=== PATIENT | male | born 1995 | race Caucasian/White ===

== ENCOUNTER → 2017-02-19 05:34 | Emergency (ER) | payer OTHER ==
[~2017-02-19 05:34] MED LIST: ALPRAZolam TAB* 0.5 MG PO ONE; Acetaminophen TAB* 325 MG PO ONE; DULoxetine DR CAP* 30 MG CAP.DR PO ONE; DULoxetine DR CAP* 60 MG CAP.DR PO ONE; Ibuprofen TAB* 600 MG PO ONE; Ibuprofen TAB* 800 MG PO ONE; LORazepam TAB(*) 1 MG PO ONE
[2017-02-19 08:17] LABS: Urine Bilirubin Negative (Negative); Urine Glucose Negative (Negative); Urine Nitrite Negative (Negative)
[2017-02-19 08:27] LABS: Benzodiazepine Urine Screen None Detected (None Detect)
[2017-02-19 09:00] LABS: Hematocrit 45 % (42-52); Hemoglobin 15.7 g/dl (14.0-18.0); Mean Corpuscular HGB Conc 35 g/dl (31-36); Mean Corpuscular Hemoglobin 32 pg (27-31); Mean Corpuscular Volume 90 fL (80-94); Mean Platelet Volume 9 um3 (7.4-10.4); Red Blood Count 4.95 10^6/ul (4.0-5.4); Red Cell Distribution Width 12 % (10.5-15); White Blood Count 6.2 10^3/ul (3.5-10.8)
[2017-02-19 09:35] LABS: ALT 26 U/L (7-52); AST 59 U/L (13-39); Albumin 4.4 g/dL (3.2-5.2); Alkaline Phosphatase 52 U/L (34-104); Anion Gap 6 mmol/L (2-11); BUN/Creatinine Ratio 10.4 (8-20); Blood Urea Nitrogen 11 mg/dL (6-24); CO2 Carbon Dioxide 29 mmol/L (22-32); Calcium 9.4 mg/dL (8.6-10.3); Chloride 102 mmol/L (101-111); EGFR African American 113.4 (>60); EGFR Non-African American 88.2 (>60); Globulin 2.2 g/dL (2-4); Glucose 94 mg/dL (70-100); Potassium 4.2 mmol/L (3.5-5.0); Sodium 137 mmol/L (133-145); Total Protein 6.6 g/dL (6.4-8.9)
[2017-02-19 10:10] LABS: Acetaminophen < 15 mcg/mL; Alcohol < 10 mg/dL (<10); Salicylate < 2.50 mg/dL (<30)
[2017-02-19 10:15] LABS: TSH (Thyroid Stimulating Horm) 2.62 mcIU/mL (0.34-5.60)
[2017-02-19 13:11] VITALS: BP 126/72
--- NOTE | 2017-02-20 08:44 | PN ---
ED Flex Patient Progress Note Subjective: This is a 21 year-old M who is pending discharge to home secondary to anxiety. Pt offers no complaints at this time. He has been having cold like symptoms for the past couple days. He slept well last night. Objective: Vitals: Most recent vital signs documented below. General NAD, Alert and oriented x3. Heart: rrr at 70 bpm Lungs: CTA or with rales, rhonchi, wheezing Laboratory: Current laboratory results documented below. Assessment: Persistent mood disorder Plan: Pending psychiatric to discharge will follow up daily Condition: stable Disposition: home Vital Signs Temp Pulse Resp BP Pulse Ox 100.7 F 78 13 126/72 100 02/19/17 13:10 02/19/17 13:10 02/20/17 05:33 02/19/17 13:10 02/19/17 13:10 Lab Results - Entire Visit 02/19/17 02/19/17 02/19/17 08:37 08:37 06:05 WBC 6.2 RBC 4.95 Hgb 15.7 Hct 45 MCV 90 MCH 32 H MCHC 35 RDW 12 Plt Count 139 L MPV 9 Neut % (Auto) 57.1 Lymph % (Auto) 23.4 L [place] % (Auto) 18.9 H Eos % (Auto) 0.2 Baso % (Auto) 0.4 Absolute Neuts (auto) 3.5 Absolute Lymphs (auto) 1.4 Absolute Monos (auto) 1.2 H Absolute Eos (auto) 0 Absolute Basos (auto) 0 Absolute Nucleated RBC 0 Nucleated RBC % 0.1 Sodium 137 Potassium 4.2 Chloride 102 Carbon Dioxide 29 Anion Gap 6 BUN 11 Creatinine 1.06 Est GFR ( Amer) 113.4 Est GFR (Non-Af Amer) 88.2 BUN/Creatinine Ratio 10.4 Glucose 94 Calcium 9.4 Total Bilirubin 0.70 AST 59 H ALT 26 Alkaline Phosphatase 52 Total Protein 6.6 Albumin 4.4 Globulin 2.2 Albumin/Globulin Ratio 2.0 TSH 2.62 Urine Color Yellow Urine Appearance Clear Urine pH 7.0 Ur Specific [place] 1.008 L Urine Protein Negative Urine Ketones Negative Urine Blood Negative Urine Nitrate Negative Urine Bilirubin Negative Urine Urobilinogen Negative Ur Leukocyte Esterase Negative Urine Glucose Negative Urine Ascorbic Acid * H Salicylates < 2.50 Urine Opiates Screen Acetaminophen < 15 Ur Barbiturates Screen Ur Phencyclidine Scrn Ur Amphetamines Screen U Benzodiazepines Scrn Urine Cocaine Screen U Cannabinoids Screen Serum Alcohol < 10 02/19/17 06:05 WBC RBC Hgb Hct MCV MCH MCHC RDW Plt Count MPV Neut % (Auto) Lymph % (Auto) [place] % (Auto) Eos % (Auto) Baso % (Auto) Absolute Neuts (auto) Absolute Lymphs (auto) Absolute Monos (auto) Absolute Eos (auto) Absolute Basos (auto) Absolute Nucleated RBC Nucleated RBC % Sodium Potassium Chloride Carbon Dioxide Anion Gap BUN Creatinine Est GFR ( Amer) Est GFR (Non-Af Amer) BUN/Creatinine Ratio Glucose Calcium Total Bilirubin AST ALT Alkaline Phosphatase Total Protein Albumin Globulin Albumin/Globulin Ratio TSH Urine Color Urine Appearance Urine pH Ur Specific [place] Urine Protein Urine Ketones Urine Blood Urine Nitrate Urine Bilirubin Urine Urobilinogen Ur Leukocyte Esterase Urine Glucose Urine Ascorbic Acid Salicylates Urine Opiates Screen None detected Acetaminophen Ur Barbiturates Screen None detected Ur Phencyclidine Scrn None detected Ur Amphetamines Screen None detected U Benzodiazepines Scrn None detected Urine Cocaine Screen None detected U Cannabinoids Screen None detected Serum Alcohol
[2017-02-20 13:19] LABS: Mono Internal Control QC Line Present
--- NOTE | 2017-02-28 01:55 | ED ---
Gi Ashley Thomas, scribed for Franki Dillard MD on 02/19/17 at 0603 . Psychiatric Complaint - HPI Summary HPI Summary: The pt is a 21 y/o M presenting to the ED s/p a panic attack a few hours ago in which he felt short of breath and suicidal. He has a history of suicidal ideation. He denies any plans. There are no known recent stressors. The patient denies SOB in the ED. He is on 60 mg Duloxetine. He has never been admitted to a psychiatric unit. - History Of Current Complaint Chief Complaint: EDMentalHealth Time Seen by Provider: 02/19/17 05:56 Hx Obtained From: Patient Onset/Duration: Lasting Hours - onset a few hours ago, Still Present Timing: Intermittent Episode Lasting Character: Depressed Aggravating Factor(s): Nothing Alleviating Factor(s): Nothing Related History: Positive For: Prior Psychiatric Issues Has Suicidal: Reports: Thoughts. Denies: With A Plan Recent Stressor(s): No recent stressors - Allergies/Home Medications Allergies/Adverse Reactions: Allergies Allergy/AdvReac Type Severity Reaction Status Date / Time No Known Allergies Allergy Verified 02/19/17 05:42 Home Medications: Home Medications DULoxetine CAP* [Cymbalta CAP*] 60 mg PO DAILY 02/19/17 [History Confirmed ] PMH/Surg Hx/FS Hx/Imm Hx Previously Healthy: No Endocrine/Hematology History: Denies: Hx Diabetes Psychiatric History: Reports: Hx Depression, Hx Panic Disorder Infectious Disease History: No Infectious Disease History: Denies: Traveled Outside the [place] in Last 30 Days - Family History Known Family History: Positive: Other - Depression - Social History Occupation: Student Lives: Dormitory/Roommates Hx Substance Use: No Substance Use Type: Reports: None Hx Tobacco Use: No Smoking Status (MU): Never Smoked Tobacco Review of Systems Negative: Fever Negative: Shortness Of Breath Positive: Depressed, Other - SI, panic attack All Other Systems Reviewed And Are Negative: Yes Physical Exam - Summary Physical Exam Summary: VITAL SIGNS: Reviewed. GENERAL: Patient is a well-developed and nourished male who is lying comfortable in the stretcher. Patient is not in any acute respiratory distress. HEAD AND FACE: No signs of trauma. No ecchymosis, hematomas or skull depressions. No sinus tenderness. EYES: PERRLA, EOMI x 2, No injected conjunctiva, no nystagmus. EARS: Hearing grossly intact. Ear canals and tympanic membranes are within normal limits. MOUTH: Oropharynx within normal limits. NECK: Supple, trachea is midline, no adenopathy, no JVD, no carotid bruit, no c- spine tenderness, neck with full ROM. CHEST: Symmetric, no tenderness at palpation LUNGS: Clear to auscultation bilaterally. No wheezing or crackles. CVS: Regular rate and rhythm, S1 and S2 present, no murmurs or gallops appreciated. ABDOMEN: Soft, non-tender. No signs of distention. No rebound no guarding, and no masses palpated. Bowel sounds are normal. EXTREMITIES: FROM in all major joints, no edema, no cyanosis or clubbing. NEURO: Alert and oriented x 3. No acute neurological deficits. Speech is normal and follows commands. SKIN: Dry and warm PSYCHIATRIC: He seems anxious. Triage Information Reviewed: Yes Vital Signs On Initial Exam: Initial Vitals Temp Pulse Resp BP Pulse Ox 97.2 F 84 16 150/94 99 02/19/17 05:36 02/19/17 05:36 02/19/17 05:36 02/19/17 05:36 02/19/17 05:36 Vital Signs Reviewed: Yes Diagnostics - Vital Signs Vital Signs Temp Pulse Resp BP Pulse Ox 02/19/17 05:36 97.2 F 84 16 150/94 99 - Laboratory Lab Results: Lab Results 02/19/17 02/19/17 02/19/17 Range/Units 06:05 06:05 08:37 WBC (3.5-10.8) 10^3/ul RBC (4.0-5.4) 10^6/ul Hgb (14.0-18.0) g/dl Hct (42-52) % MCV (80-94) fL MCH (27-31) pg MCHC (31-36) g/dl RDW (10.5-15) % Plt Count (150-450) 10^3/ul MPV (7.4-10.4) um3 Neut % (Auto) (38-83) % Lymph % (Auto) (25-47) % [place] % (Auto) (1-9) % Eos % (Auto) (0-6) % Baso % (Auto) (0-2) % Absolute Neuts (auto) (1.5-7.7) 10^3/ul Absolute Lymphs (auto) (1.0-4.8) 10^3/ul Absolute Monos (auto) (0-0.8) 10^3/ul Absolute Eos (auto) (0-0.6) 10^3/ul Absolute Basos (auto) (0-0.2) 10^3/ul Absolute Nucleated RBC 10^3/ul Nucleated RBC % Sodium 137 (133-145) mmol/L Potassium 4.2 (3.5-5.0) mmol/L Chloride 102 (101-111) mmol/L Carbon Dioxide 29 (22-32) mmol/L Anion Gap 6 (2-11) mmol/L BUN 11 (6-24) mg/dL Creatinine 1.06 (0.67-1.17) mg/dL Est GFR ( Amer) 113.4 (>60) Est GFR (Non-Af Amer) 88.2 (>60) BUN/Creatinine Ratio 10.4 (8-20) Glucose 94 (70-100) mg/dL Calcium 9.4 (8.6-10.3) mg/dL Total Bilirubin 0.70 (0.2-1.0) mg/dL AST 59 H (13-39) U/L ALT 26 (7-52) U/L Alkaline Phosphatase 52 (34-104) U/L Total Protein 6.6 (6.4-8.9) g/dL Albumin 4.4 (3.2-5.2) g/dL Globulin 2.2 (2-4) g/dL Albumin/Globulin Ratio 2.0 (1-3) TSH 2.62 (0.34-5.60) mcIU/mL Urine Color Yellow Urine Appearance Clear Urine pH 7.0 (5-9) Ur Specific [place] 1.008 L (1.010-1.030) Urine Protein Negative (Negative) Urine Ketones Negative (Negative) Urine Blood Negative (Negative) Urine Nitrate Negative (Negative) Urine Bilirubin Negative (Negative) Urine Urobilinogen Negative (Negative) Ur Leukocyte Esterase Negative (Negative) Urine Glucose Negative (Negative) Urine Ascorbic Acid * H (Negative) Salicylates < 2.50 (<30) mg/dL Urine Opiates Screen None detected (None Detect) Acetaminophen < 15 mcg/mL Ur Barbiturates Screen None detected (None Detect) Ur Phencyclidine Scrn None detected (None Detect) Ur Amphetamines Screen None detected (None Detect) U Benzodiazepines Scrn None detected (None Detect) Urine Cocaine Screen None detected (None Detect) U Cannabinoids Screen None detected (None Detect) Serum Alcohol < 10 (<10) mg/dL Monoscreen (Negative) Group A Strep Rapid (Negative) 02/19/17 02/19/17 02/20/17 Range/Units 08:37 08:37 14:44 WBC 6.2 (3.5-10.8) 10^3/ul RBC 4.95 (4.0-5.4) 10^6/ul Hgb 15.7 (14.0-18.0) g/dl Hct 45 (42-52) % MCV 90 (80-94) fL MCH 32 H (27-31) pg MCHC 35 (31-36) g/dl RDW 12 (10.5-15) % Plt Count 139 L (150-450) 10^3/ul MPV 9 (7.4-10.4) um3 Neut % (Auto) 57.1 (38-83) % Lymph % (Auto) 23.4 L (25-47) % Jay % (Auto) 18.9 H (1-9) % Eos % (Auto) 0.2 (0-6) % Baso % (Auto) 0.4 (0-2) % Absolute Neuts (auto) 3.5 (1.5-7.7) 10^3/ul Absolute Lymphs (auto) 1.4 (1.0-4.8) 10^3/ul Absolute Monos (auto) 1.2 H (0-0.8) 10^3/ul Absolute Eos (auto) 0 (0-0.6) 10^3/ul Absolute Basos (auto) 0 (0-0.2) 10^3/ul Absolute Nucleated RBC 0 10^3/ul Nucleated RBC % 0.1 Sodium (133-145) mmol/L Potassium (3.5-5.0) mmol/L Chloride (101-111) mmol/L Carbon Dioxide (22-32) mmol/L Anion Gap (2-11) mmol/L BUN (6-24) mg/dL Creatinine (0.67-1.17) mg/dL Est GFR ( Amer) (>60) Est GFR (Non-Af Amer) (>60) BUN/Creatinine Ratio (8-20) Glucose (70-100) mg/dL Calcium (8.6-10.3) mg/dL Total Bilirubin (0.2-1.0) mg/dL AST (13-39) U/L ALT (7-52) U/L Alkaline Phosphatase (34-104) U/L Total Protein (6.4-8.9) g/dL Albumin (3.2-5.2) g/dL Globulin (2-4) g/dL Albumin/Globulin Ratio (1-3) TSH (0.34-5.60) mcIU/mL Urine Color Urine Appearance Urine pH (5-9) Ur Specific [place] (1.010-1.030) Urine Protein (Negative) Urine Ketones (Negative) Urine Blood (Negative) Urine Nitrate (Negative) Urine Bilirubin (Negative) Urine Urobilinogen (Negative) Ur Leukocyte Esterase (Negative) Urine Glucose (Negative) Urine Ascorbic Acid (Negative) Salicylates (<30) mg/dL Urine Opiates Screen (None Detect) Acetaminophen mcg/mL Ur Barbiturates Screen (None Detect) Ur Phencyclidine Scrn (None Detect) Ur Amphetamines Screen (None Detect) U Benzodiazepines Scrn (None Detect) Urine Cocaine Screen (None Detect) U Cannabinoids Screen (None Detect) Serum Alcohol (<10) mg/dL Monoscreen Negative (Negative) Group A Strep Rapid Negative (Negative) Result Diagrams: 02/19/17 08:37 02/19/17 08:37 Lab Statement: Any lab studies that have been ordered have been reviewed, and results considered in the medical decision making process. Course/Dx - Course Assessment/Plan: The pt is a 21 y/o M presenting to the ED s/p a panic attack a few hours ago in which he felt short of breath and suicidal. He has a history of suicidal ideation. He denies any plans. There are no known recent stressors. The patient denies SOB in the ED. He is on 60 mg Duloxetine. He has never been admitted to a psychiatric unit. The patient will be signed out to the next ED attending, pending mental health evaluation and awaiting disposition. - Differential Dx/Clinical Impression Differential Diagnosis/HQI/PQRI: Positive: Depression Provider Diagnosis: Depression Discharge - Discharge Plan Condition: Stable Disposition: OTHER Discharge Disposition Comment: Signed out pending mental health evaluation. Referrals: [facility] - [place] [Primary Care Provider] - The documentation as recorded by the Gi arceo Thomas accurately reflects the service I personally performed and the decisions made by me, Franki Dillard MD.
== END ==
LOC: ED 05:34
DX: F32.9 Major depressive disorder, single episode, unspecified (principal); J02.9 Acute pharyngitis, unspecified
CPT/HCPCS: 36415; 80053; 80307; 80320; 80329; 81003; 84443; 85025; 86308; 87651; 99283; A9270-GY; G0480